=== PATIENT | male | born 1980 | race Caucasian/White ===

== ENCOUNTER 2024-07-21 09:17 | Emergency (ER) | payer OTHER ==
[~2024-07-21] VITALS: Ht 167.6 cm; Wt 74.8 kg
[2024-07-21] MEDS ORDERED: SULTRIDS PO (10:38)
[2024-07-21] MEDS ORDERED: CLIN300 PO (10:38)
[2024-07-21] MEDS ORDERED: HYDR1TAB94 PO (10:38)
== END 2024-07-21 10:52 | disposition home or self-care (01) ==
LOC: ER 09:17
DX: L03.012 Cellulitis of left finger (principal)
CPT/HCPCS: 10060; 99283-25